=== PATIENT | female | born 1995 | race American Indian/Alaskan Native ===

== ENCOUNTER 2018-08-27 08:24 | Outpatient (CLI) | payer MEDICAID ==
[2018-08-27 08:49] VITALS: BP 118/74
[2018-08-27] MEDS ORDERED: LACTATED RINGERS 1,000 ML IV ONE (09:07)
[2018-08-27] MEDS ORDERED: ZOFRAN IV ONE (10:00)
[2018-08-27] MEDS ORDERED: LACTATED RINGERS 1,000 ML IV SCH (10:00)
== END 2018-08-27 10:50 | disposition home or self-care (01) ==
LOC: TRG 08:24
PROVIDERS: ATTEND Obstetrics & Gynecology
DX: O21.2 Late vomiting of pregnancy (principal); O47.1 False labor at or after 37 completed weeks of gestation; O26.893 Other specified pregnancy related conditions, third trimester; R10.30 Lower abdominal pain, unspecified; Z3A.37 37 weeks gestation of pregnancy
CPT/HCPCS: 59025; 96361; 96374; J2405; J7120; 96360

== ENCOUNTER 2018-08-29 16:02 | Inpatient (IN) | payer MEDICAID ==
[2018-08-29] MEDS ORDERED: LACTATED RINGERS 500 ML IV ONE (16:58)
[2018-08-29 17:23] LABS: Bilirubin,Urine NEG (Negative); Blood,Urine NEG (Negative); Color,Urine Straw (Yellow); Protein,Urine <15 mg/dL mg/dL (Negative); Urobilinogen,Urine < 2.0 mg/dL (<2.0)
[2018-08-29] MEDS ORDERED: LACTATED RINGERS 1,000 ML ONE (23:24)
[2018-08-29] MEDS ORDERED: LACTATED RINGERS 1,000 ML IV SCH (23:45)
--- NOTE | 2018-08-29 23:46 | Ultrasound Report ---
FINAL REPORT EXAM: US OB LIMITED HISTORY: FOR MERY TECHNIQUE: Ultrasound obstetrical limited PRIORS: None. FINDINGS: There is single live intrauterine gestation in cephalic presentation. cardiac activity is prese nt with heart rate of 150 beats per minute Amniotic fluid index is low measuring 5.7 centimeters with deepest pocket measurement 2.32 centimeter s. IMPRESSION: Low amniotic fluid index measuring 5.7 centimeters
--- NOTE | 2018-08-30 00:46 | Event Note ---
Date: 08/30/18 s/p Gaby SUTHERLAND, no evidence of ROM, will admit IV hydration , hang ORDONEZ in am
--- NOTE | 2018-08-30 07:45 | Progress Note ---
Assessment and Plan Patient sleeping, no complaints this morning. reports nausea/vomiting resolved. chux & towels dry under patient. Spex exam done - cervix well visualized. no pooling or fluid noted. Plan for repeat MERY this morning. If MERY improved will d/c home with labor precautions. pt has appointment in office tomorrow. - Patient Problems (1) 37 weeks gestation of Current Visit: Yes Status: Acute (2) MERY (amniotic fluid index) borderline low Current Visit: Yes Status: Acute Subjective - Subjective Date of service: 08/30/18 Principal diagnosis: IUP @ 37+6, low MERY Patient reports: movement normal, no new complaints (pt sleeping - n/s resolved. chux dry under patient. ) Objective - Vital Signs Vital Signs: Vital Signs - 12hr 08/29/18 08/29/18 08/30/18 20:25 23:20 00:18 Temperature 97.2 F L Pulse Rate 61 62 72 Respiratory 18 Rate Blood Pressure 114/56 134/89 Blood Pressure 129/75 [Left] O2 Sat by Pulse 99 Oximetry 08/30/18 08/30/18 08/30/18 00:26 00:31 00:36 Temperature Pulse Rate 55 L 71 67 Respiratory Rate Blood Pressure Blood Pressure [Left] O2 Sat by Pulse 99 98 98 Oximetry 08/30/18 08/30/18 08/30/18 00:41 00:46 00:51 Temperature Pulse Rate 55 L 60 69 Respiratory Rate Blood Pressure Blood Pressure [Left] O2 Sat by Pulse 99 99 97 Oximetry 08/30/18 08/30/18 08/30/18 00:53 00:56 01:01 Temperature Pulse Rate 66 55 L 66 Respiratory Rate Blood Pressure Blood Pressure [Left] O2 Sat by Pulse 82 L 100 100 Oximetry 08/30/18 08/30/18 08/30/18 01:06 01:11 01:16 Temperature Pulse Rate 63 61 66 Respiratory Rate Blood Pressure Blood Pressure [Left] O2 Sat by Pulse 100 100 100 Oximetry 08/30/18 08/30/18 08/30/18 01:21 01:26 01:30 Temperature Pulse Rate 69 70 74 Respiratory Rate Blood Pressure Blood Pressure [Left] O2 Sat by Pulse 100 100 87 Oximetry 08/30/18 08/30/18 08/30/18 01:31 01:37 01:42 Temperature Pulse Rate 73 58 L 60 Respiratory Rate Blood Pressure Blood Pressure [Left] O2 Sat by Pulse 100 6 L 97 Oximetry 08/30/18 08/30/18 08/30/18 01:47 01:51 01:55 Temperature Pulse Rate 62 33 L 56 L Respiratory Rate Blood Pressure Blood Pressure [Left] O2 Sat by Pulse 100 54 L 100 Oximetry 08/30/18 08/30/18 08/30/18 01:57 02:00 02:06 Temperature Pulse Rate 77 65 60 Respiratory Rate Blood Pressure Blood Pressure [Left] O2 Sat by Pulse 53 L 100 100 Oximetry 08/30/18 08/30/18 08/30/18 02:07 02:11 02:13 Temperature Pulse Rate 56 L 54 L Respiratory Rate Blood Pressure Blood Pressure [Left] O2 Sat by Pulse 0 L 100 87 Oximetry 08/30/18 08/30/18 08/30/18 02:16 02:21 02:26 Temperature Pulse Rate 48 L 57 L 51 L Respiratory Rate Blood Pressure Blood Pressure [Left] O2 Sat by Pulse 98 98 98 Oximetry 08/30/18 08/30/18 08/30/18 02:31 02:36 02:41 Temperature Pulse Rate 57 L 51 L 61 Respiratory Rate Blood Pressure Blood Pressure [Left] O2 Sat by Pulse 97 98 97 Oximetry 08/30/18 08/30/18 08/30/18 02:46 02:51 02:56 Temperature Pulse Rate 60 53 L 61 Respiratory Rate Blood Pressure Blood Pressure [Left] O2 Sat by Pulse 97 97 98 Oximetry 08/30/18 08/30/18 08/30/18 03:01 03:06 03:11 Temperature Pulse Rate 55 L 73 59 L Respiratory Rate Blood Pressure Blood Pressure [Left] O2 Sat by Pulse 99 100 100 Oximetry 08/30/18 08/30/18 08/30/18 03:16 03:21 03:26 Temperature Pulse Rate 63 59 L 59 L Respiratory Rate Blood Pressure Blood Pressure [Left] O2 Sat by Pulse 99 98 97 Oximetry 08/30/18 08/30/18 08/30/18 03:31 03:36 03:41 Temperature Pulse Rate 55 L 56 L Respiratory Rate Blood Pressure Blood Pressure [Left] O2 Sat by Pulse 97 81 L 99 Oximetry 08/30/18 08/30/18 08/30/18 03:44 03:46 03:51 Temperature Pulse Rate 59 L 54 L 53 L Respiratory Rate Blood Pressure Blood Pressure [Left] O2 Sat by Pulse 0 L 99 100 Oximetry 08/30/18 08/30/18 08/30/18 03:56 04:04 04:06 Temperature Pulse Rate 60 55 L Respiratory Rate Blood Pressure Blood Pressure [Left] O2 Sat by Pulse 100 86 99 Oximetry 08/30/18 08/30/18 08/30/18 04:11 04:16 04:21 Temperature Pulse Rate 58 L 60 53 L Respiratory Rate Blood Pressure Blood Pressure [Left] O2 Sat by Pulse 99 98 99 Oximetry 08/30/18 08/30/18 08/30/18 04:26 04:29 04:31 Temperature Pulse Rate 65 81 83 Respiratory Rate Blood Pressure Blood Pressure [Left] O2 Sat by Pulse 97 73 L 95 Oximetry 08/30/18 08/30/18 08/30/18 04:36 04:41 04:43 Temperature Pulse Rate 71 64 55 L Respiratory Rate Blood Pressure Blood Pressure [Left] O2 Sat by Pulse 94 96 48 L Oximetry 08/30/18 08/30/18 08/30/18 04:46 04:50 04:51 Temperature Pulse Rate 63 79 63 Respiratory Rate Blood Pressure Blood Pressure [Left] O2 Sat by Pulse 99 90 95 Oximetry 08/30/18 08/30/18 08/30/18 04:55 05:00 05:05 Temperature Pulse Rate 61 72 60 Respiratory Rate Blood Pressure Blood Pressure [Left] O2 Sat by Pulse 100 97 97 Oximetry 08/30/18 08/30/18 08/30/18 05:06 05:11 05:15 Temperature Pulse Rate 66 77 66 Respiratory Rate Blood Pressure Blood Pressure [Left] O2 Sat by Pulse 92 91 98 Oximetry 08/30/18 08/30/18 08/30/18 05:20 05:26 05:30 Temperature Pulse Rate 70 72 70 Respiratory Rate Blood Pressure Blood Pressure [Left] O2 Sat by Pulse 96 94 94 Oximetry 08/30/18 08/30/18 08/30/18 05:34 05:35 05:40 Temperature Pulse Rate 77 70 Respiratory Rate Blood Pressure Blood Pressure [Left] O2 Sat by Pulse 85 97 100 Oximetry 08/30/18 08/30/18 08/30/18 05:41 05:45 05:50 Temperature Pulse Rate 68 73 70 Respiratory Rate Blood Pressure 107/72 Blood Pressure [Left] O2 Sat by Pulse 95 97 Oximetry 08/30/18 08/30/18 08/30/18 05:55 06:00 06:05 Temperature Pulse Rate 78 74 64 Respiratory Rate Blood Pressure Blood Pressure [Left] O2 Sat by Pulse 98 99 100 Oximetry 08/30/18 08/30/18 08/30/18 06:10 06:15 06:20 Temperature Pulse Rate 63 68 65 Respiratory Rate Blood Pressure Blood Pressure [Left] O2 Sat by Pulse 99 97 98 Oximetry 08/30/18 08/30/18 08/30/18 06:25 06:30 06:35 Temperature Pulse Rate 67 66 66 Respiratory Rate Blood Pressure Blood Pressure [Left] O2 Sat by Pulse 98 97 97 Oximetry 08/30/18 08/30/18 08/30/18 06:40 06:45 06:50 Temperature Pulse Rate 63 69 85 Respiratory Rate Blood Pressure Blood Pressure [Left] O2 Sat by Pulse 97 97 96 Oximetry 08/30/18 08/30/18 08/30/18 06:55 07:00 07:05 Temperature Pulse Rate 65 68 62 Respiratory Rate Blood Pressure Blood Pressure [Left] O2 Sat by Pulse 97 97 98 Oximetry 08/30/18 08/30/18 08/30/18 07:10 07:15 07:20 Temperature Pulse Rate 69 66 69 Respiratory Rate Blood Pressure Blood Pressure [Left] O2 Sat by Pulse 97 96 96 Oximetry 08/30/18 08/30/18 07:25 07:30 Temperature Pulse Rate 67 72 Respiratory Rate Blood Pressure Blood Pressure [Left] O2 Sat by Pulse 95 95 Oximetry - Exam Breasts: normal Cardiovascular: Regular rate Lungs: Clear to auscultation, Normal air movement Abdomen: Present: normal appearance, soft Vulva: both: normal Uterus: Present: normal FHR: category 1 Uterine Contraction Monitor Mode: External Uterine Tone Measurement Phase: Resting Extremities: normal Deep Tendon Reflex Grade: Normal +2 - Labs Labs: Laboratory Results - last 24 hr 08/29/18 17:15 Urine Color Straw Urine Turbidity Clear Urine pH 7.0 Ur Specific Mona 1.004 Urine Protein <15 mg/dl Urine Glucose (UA) Neg Urine Ketones Neg Urine Blood Neg Urine Nitrite Neg Urine Bilirubin Neg Urine Urobilinogen < 2.0 Ur Leukocyte Esterase Neg Urine WBC (Auto) 1.0 Urine RBC (Auto) 1.0 U Epithel Cells (Auto) 1.0
--- NOTE | 2018-08-30 11:58 | Ultrasound Report ---
OB LIMITED INDICATION: Repeat MERY. COMPARISON: Yesterday. TECHNIQUE: Transabdominal grayscale ultrasound with Doppler interrogation. Gestation: Fernández Position: Cephalic Amniotic Fluid: Decreased (<7 cm) MERY = 6.1 cm Heart Rate: 133 BPM CONCLUSION: Findings, as above.
--- NOTE | 2018-08-30 15:03 | Event Note ---
Date: 08/30/18 After hydration pt MERY remains borderline. I have d/w repeating son for MERY vs IOL as she is late term. Will proceed with IOL at this time for bordeline low MERY. I have d/w pt the following risk: failed induction, infection, need for emergent c/s, need for c/s for failed IOL, need for several days for IOL. Pt and her mother expressed understanding and questions were addressed and answered. Will allow pt to have dinner at 5pm and proceed with IOL at 7pm with cervidil. Cx is 1/50/-2/soft/mid position.
--- NOTE | 2018-08-30 15:19 | History and Physical Report ---
History of Present Illness Date of examination: 08/30/18 Date of admission: 08/29/18 23:50 Chief complaint: borderline low MERY History of present illness: EDC Confirmation: 09/15/2018 Past History : 1 Term Births: 0 Premature Births: 0 Living Children: 0 Para: 0 Mult. Births: 0 Prev : 0 Aborta: 0 Elect. Ab: 0 Spont. 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 of genital herpes: no Partner hx. of genital herpes: no Varicella/Chicken Pox Status: Unknown TB Risk: no Genetic History Congenital Heart Defect: Mom: no Dad: unknown Tami Disease: Mom: no Dad: unknown Thalassemia Mom: no Dad: unknown Neural Tube Defect Mom: no Dad: unknown Down's Syndrome Mom: no Dad: unknown Feng-Sachs Mom: no Dad: unknown Sickle Cell Disease/Trait Mom: no Dad: unknown Hemophilia Mom: no Dad: unknown Muscular Dystrophy Mom: no Dad: unknown Cystic Fibrosis Mom: no Dad: unknown [place] Chorea Mom: no Dad: unknown Mental Retardation Mom: no Dad: unknown Fragile X Mom: no Dad: unknown Other Genetic/Chromosomal Disorder Mom: no Dad: unknown Child w/other defect Mom: no Dad: unknown Enviromental Exposures Xray Exposure: no Medication, drug, or alcohol use since LMP: no Chemical/Other Exposure: no Exposure to Cat Liter: no Hx of Parvovirus (Fifth Disease): no Occupational Exposure to Children: none Current Allergies (reviewed today): No known allergies Past History Past Medical History: other (see HPI) Past Surgical History: other (see 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) 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) Family/Genetic History: other (see HPI) - Obstetrical History Expected Date of Delivery: 09/15/18 Actual Gestation: 37 Week(s) 5 Day(s) : 1 Para: 0 Hx # Term Pregnancies: 0 Number of Pregnancies: 0 Spontaneous Abortions: 0 Induced : 0 Number of Living Children: 0 Medications and Allergies Allergies Allergy/AdvReac Type Severity Reaction Status Date / Time No Known Allergies Allergy Verified 08/27/18 09:03 Home Medications Medication Instructions Recorded Confirmed Last Taken Type Pnv No.95/Ferrous Fum/Folic AC 1 tab PO QDAY 06/07/18 08/30/18 08/29/18 10:00 History [ Vitamins Tablet] Ferrous Sulfate [Feosol 325 MG tab] 1 tab PO QDAY 08/27/18 08/30/18 08/29/18 History Levothyroxine [Synthroid] 125 mcg PO QAM 08/27/18 08/30/18 08/29/18 History Active Meds: Active Medications Dinoprostone (Cervidil) 10 mg VG ONCE ONE Stop: 08/30/18 19:01 Lactated Ringer's (Lactated Ringers) 1,000 mls @ 125 mls/hr IV DIRECT CHARLIE Review of Systems All systems: negative - Vital Signs Vital signs: Vital Signs Temp Pulse Resp BP 98 F 69 16 126/83 08/29/18 16:48 08/29/18 16:48 08/29/18 16:48 08/29/18 16:48 Temp Pulse Resp BP Pulse Ox 97.2 F L 65 18 122/82 100 08/30/18 00:18 08/30/18 14:43 08/30/18 00:18 08/30/18 14:43 08/30/18 10:58 - Physical Exam Breasts: Positive: normal Cardiovascular: Regular rate Lungs: Positive: Clear to auscultation, Normal air movement Abdomen: Positive: normal appearance, soft Genitourinary (Female): Positive: normal external genitalia, normal perenium Vulva: both: normal Vagina: Positive: normal moisture (no leaking or pooling noted.) Uterus: Positive: normal size Anus/Rectum: Positive: normal perianal skin Extremities: Positive: normal Deep Tendon Reflex Grade: Normal +2 - Obstetrical FHR: category 1 Uterine Contraction Monitor Mode: External Cervical Dilatation: 1 Cervical Effacement Percentage: 50 station: -2 Uterine Tone Measurement Phase: Resting Results All other labs normal. Assessment and Plan 22 y/o g1po admitted for IOL d/o borderline low MERY. GBS Neg. Admission orders in EMR. - Patient Problems (1) 37 weeks gestation of Current Visit: Yes Status: Acute (2) MERY (amniotic fluid index) borderline low Current Visit: Yes Status: Acute (3) History of thyroidectomy Current Visit: Yes Status: Acute
[2018-08-30] MEDS ORDERED: ZOFRAN IV PRN (15:59)
[2018-08-30] MEDS ORDERED: XYLOCAINE 2% INFILTRATI ONE (15:59)
[2018-08-30] MEDS ORDERED: MINERAL OIL PO PRN (15:59)
[2018-08-30] MEDS ORDERED: BRETHINE SUB-Q PRN (15:59)
[2018-08-30] MEDS ORDERED: PITOCin/NS 20 UNIT/1000ML DRIP 20 UNITS/1,000 ML BAG IV SCH (16:00)
[2018-08-30] MEDS ORDERED: CERVIDIL VG ONE (19:00)
--- NOTE | 2018-08-30 19:41 | Event Note ---
Date: 08/30/18 Provider again at bedside to discuss plan of care and address any questions pt may have regarding placement of epidural, reason for IOL, risk of IOL ect that were d/w in detail upon admission. She and support persons expressed understanding and no questions were asked at this time.
[2018-08-30 20:49] LABS: Hematocrit 31.9 % (30.3-42.9); Hemoglobin 10.6 gm/dl (10.1-14.3); Mean Corpuscular HGB Conc 33 % (30-34); Mean Corpuscular Volume 90 fl (79-97); Platelet Count 207 K/mm3 (140-440); Red Blood Count 3.55 M/mm3 (3.65-5.03); Red Cell Distribution Width 14.7 % (13.2-15.2)
[2018-08-31] MEDS ORDERED: SUBLIMAZE IV PRN (05:38)
[2018-08-31] MEDS ORDERED: SUBLIMAZE ONE (05:44)
[2018-08-31] MEDS: LACTATED RINGERS 1,000 ML IV SCH ×2 (05:49→17:45)
[2018-08-31] MEDS ORDERED: PITOCin/NS 30 UNIT/500ML 30 UNITS/500 ML BAG IV SCH (07:30)
--- NOTE | 2018-08-31 08:03 | Progress Note ---
Assessment and Plan patient resting without complaints, cervidil removed. Will allow AM care and breakfast then start pitocin 4x4. Will reevaluate as needed. Discussed plan of care with patient (family present but appears to be sleeping in room), all questions addressed. - Patient Problems (1) 37 weeks gestation of Current Visit: Yes Status: Acute (2) MERY (amniotic fluid index) borderline low Current Visit: Yes Status: Acute (3) History of thyroidectomy Current Visit: Yes Status: Acute Subjective - Subjective Date of service: 08/31/18 Principal diagnosis: IUP @ 37+6, decreased MERY Interval history: EDC Confirmation: 09/15/2018 Past History : 1 Term Births: 0 Premature Births: 0 Living Children: 0 Para: 0 Mult. Births: 0 Prev : 0 Aborta: 0 Elect. Ab: 0 Spont. 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 of genital herpes: no Partner hx. of genital herpes: no Varicella/Chicken Pox Status: Unknown TB Risk: no Genetic History Congenital Heart Defect: Mom: no Dad: unknown Tami Disease: Mom: no Dad: unknown Thalassemia Mom: no Dad: unknown Neural Tube Defect Mom: no Dad: unknown Down's Syndrome Mom: no Dad: unknown Feng-Sachs Mom: no Dad: unknown Sickle Cell Disease/Trait Mom: no Dad: unknown Hemophilia Mom: no Dad: unknown Muscular Dystrophy Mom: no Dad: unknown Cystic Fibrosis Mom: no Dad: unknown [place] Chorea Mom: no Dad: unknown Mental Retardation Mom: no Dad: unknown Fragile X Mom: no Dad: unknown Other Genetic/Chromosomal Disorder Mom: no Dad: unknown Child w/other defect Mom: no Dad: unknown Enviromental Exposures Xray Exposure: no Medication, drug, or alcohol use since LMP: no Chemical/Other Exposure: no Exposure to Cat Liter: no Hx of Parvovirus (Fifth Disease): no Occupational Exposure to Children: none Current Allergies (reviewed today): No known allergies Patient reports: movement normal, no new complaints (resting w/o compliants), no loss of fluid, no vaginal bleeding, no contractions Objective - Vital Signs Vital Signs: Vital Signs - 12hr 08/30/18 08/30/18 08/30/18 19:53 20:12 20:13 Temperature 98.6 F Pulse Rate 65 70 60 Respiratory 22 Rate Blood Pressure 124/94 148/86 Blood Pressure 129/75 [Left] O2 Sat by Pulse 100 Oximetry 08/30/18 08/30/18 08/30/18 20:44 21:44 22:54 Temperature Pulse Rate 56 L 65 77 Respiratory Rate Blood Pressure 121/84 134/92 122/84 Blood Pressure [Left] O2 Sat by Pulse Oximetry 08/30/18 08/31/18 08/31/18 23:53 00:40 00:53 Temperature 97.8 F Pulse Rate 76 64 Respiratory 20 Rate Blood Pressure 127/64 106/58 Blood Pressure [Left] O2 Sat by Pulse Oximetry 08/31/18 08/31/18 08/31/18 01:55 02:53 03:52 Temperature 96.8 F L Pulse Rate 66 85 Respiratory 22 Rate Blood Pressure 89/55 114/75 Blood Pressure [Left] O2 Sat by Pulse Oximetry 08/31/18 08/31/18 08/31/18 03:53 04:53 05:48 Temperature Pulse Rate 59 L 55 L Respiratory 20 Rate Blood Pressure 101/66 102/65 Blood Pressure [Left] O2 Sat by Pulse Oximetry 08/31/18 06:53 Temperature Pulse Rate 55 L Respiratory Rate Blood Pressure 109/69 Blood Pressure [Left] O2 Sat by Pulse Oximetry - Exam Breasts: normal Cardiovascular: Regular rate Lungs: Clear to auscultation, Normal air movement Abdomen: Present: normal appearance, soft Vulva: both: normal Uterus: Present: normal FHR: auscultation normal Uterine Contraction Monitor Mode: External Uterine Contraction Pattern: Irregular Uterine Tone Measurement Phase: Resting Extremities: normal Deep Tendon Reflex Grade: Normal +2 - Labs Labs: Abnormal Labs 08/30/18 20:16 RBC 3.55 L Laboratory Results - last 24 hr 08/30/18 08/30/18 20:16 20:16 WBC 7.5 RBC 3.55 L Hgb 10.6 Hct 31.9 MCV 90 MCH 30 MCHC 33 RDW 14.7 Plt Count 207 Blood Type O POSITIVE Antibody Screen Negative
--- NOTE | 2018-08-31 13:07 | Progress Note ---
Assessment and Plan patient resting, no complaints. Discussed AROM - patient desires AROM. (pads dry under patient, pt denies any leaking. No evidence of PPROM.) AROM - clear fluid. ISE and IUPC placed without difficulty. Encouraged patient to request epidural as needed. RN to continue titrating pitocin for adequate labor. - Patient Problems (1) 37 weeks gestation of Current Visit: Yes Status: Acute (2) MERY (amniotic fluid index) borderline low Current Visit: Yes Status: Acute (3) History of thyroidectomy Current Visit: Yes Status: Acute Subjective - Subjective Date of service: 08/31/18 Principal diagnosis: IUP @ 37+6, decreased MERY Interval history: EDC Confirmation: 09/15/2018 Past History : 1 Term Births: 0 Premature Births: 0 Living Children: 0 Para: 0 Mult. Births: 0 Prev : 0 Aborta: 0 Elect. Ab: 0 Spont. 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 of genital herpes: no Partner hx. of genital herpes: no Varicella/Chicken Pox Status: Unknown TB Risk: no Genetic History Congenital Heart Defect: Mom: no Dad: unknown Tami Disease: Mom: no Dad: unknown Thalassemia Mom: no Dad: unknown Neural Tube Defect Mom: no Dad: unknown Down's Syndrome Mom: no Dad: unknown Feng-Sachs Mom: no Dad: unknown Sickle Cell Disease/Trait Mom: no Dad: unknown Hemophilia Mom: no Dad: unknown Muscular Dystrophy Mom: no Dad: unknown Cystic Fibrosis Mom: no Dad: unknown [place] Chorea Mom: no Dad: unknown Mental Retardation Mom: no Dad: unknown Fragile X Mom: no Dad: unknown Other Genetic/Chromosomal Disorder Mom: no Dad: unknown Child w/other defect Mom: no Dad: unknown Enviromental Exposures Xray Exposure: no Medication, drug, or alcohol use since LMP: no Chemical/Other Exposure: no Exposure to Cat Liter: no Hx of Parvovirus (Fifth Disease): no Occupational Exposure to Children: none Current Allergies (reviewed today): No known allergies Patient reports: movement normal, no new complaints (resting w/o compliants), no loss of fluid, no vaginal bleeding, no contractions Objective - Vital Signs Vital Signs: Vital Signs - 12hr 08/31/18 08/31/18 08/31/18 01:55 02:53 03:52 Temperature 96.8 F L Pulse Rate 66 85 Respiratory 22 Rate Blood Pressure 89/55 114/75 08/31/18 08/31/18 08/31/18 03:53 04:53 05:48 Temperature Pulse Rate 59 L 55 L Respiratory 20 Rate Blood Pressure 101/66 102/65 08/31/18 08/31/18 08/31/18 06:53 07:00 08:28 Temperature 97.0 F L Pulse Rate 55 L 50 L Respiratory Rate Blood Pressure 109/69 107/55 - Exam Breasts: normal Cardiovascular: Regular rate Lungs: Clear to auscultation, Normal air movement Abdomen: Present: normal appearance, soft Vulva: both: normal Uterus: Present: normal FHR: auscultation normal, category 1 Uterine Contraction Monitor Mode: Internal Cervical Dilatation: 3 (SROM - clear fluid) Cervical Effacement Percentage: 80 station: -1 Uterine Contraction Frequency (min): 2-4 Uterine Contraction Duration: 60 Uterine Contraction Pattern: Irregular Uterine Tone Measurement Phase: Contraction Uterine Contraction Intensity: Mild Extremities: normal Deep Tendon Reflex Grade: Normal +2 - Labs Labs: Abnormal Labs 08/30/18 20:16 RBC 3.55 L Laboratory Results - last 24 hr 08/30/18 08/30/18 08/30/18 20:16 20:16 20:16 WBC 7.5 RBC 3.55 L Hgb 10.6 Hct 31.9 MCV 90 MCH 30 MCHC 33 RDW 14.7 Plt Count 207 RPR Nonreactive Blood Type O POSITIVE Antibody Screen Negative
--- NOTE | 2018-08-31 14:36 | Anesthesia Day of Surgery ---
Anesthesia Day of Surgery - Day of Surgery Patient Examined: Yes Patient H&P Reviewed: Yes Patient is NPO: Yes Beta Blockers: No Cardiac Clearance: No Pulmonary Clearance: No Jack's Test: N/A
--- NOTE | 2018-08-31 14:45 | Anesthesia Consultation ---
Anesthesia Consult and Med Hx - Airway Anesthetic Teeth Evaluation: Good ROM Head & Neck: Adequate Mental/Hyoid Distance: Adequate Mallampati Class: Class II Intubation Access Assessment: Probably Good - Pulmonary Exam CTA: Yes - Cardiac Exam Cardiac Exam: RRR - Pre-Operative Health Status ASA Pre-Surgery Classification: ASA2 Proposed Anesthetic Plan: Epidural - Pulmonary Hx Smoking: No Hx Asthma: No Hx Respiratory Symptoms: No SOB: No COPD: No Home Oxygen Therapy: No Hx Pneumonia: No Hx Sleep Apnea: No - Cardiovascular System Hx Hypertension: No Hx Coronary Artery Disease: No Hx Heart Attack/AMI: No Hx Angina: No Hx Percutaneous Transluminal Coronary Angioplasty (PTCA): No Hx Cardia Arrhythmia: No Hx Pacemaker: No Hx Internal Defibrillator: No Hx Valvular Heart Disease: No Hx Heart Murmur: No Hx Peripheral Vascular Disease: No - Central Nervous System Hx Neuromuscular Disorder: No Hx Seizures: No CVA: No Hx Back Pain: No Hx Psychiatric Problems: No - Gastrointestinal Hx Ulcer: No Hx Gastroesophageal Reflux Disease: No - Endocrine Hx Renal Disease: No Hx End Stage Renal Disease: No Hx Cirrhosis: No Hx Liver Disease: No Hx Insulin Dependent Diabetes: No Hx Non-Insulin Dependent Diabetes: No Hx Thyroid Disease: No Hx Hypothyroidism: No Hx Hyperthyroidism: No - Hematic Hx Anemia: Yes Hx Sickle Cell Disease: No - Other Systems Hx Alcohol Use: Yes (pre ) Hx Substance Use: No Hx Cancer: No Hx Obesity: No
[2018-08-31] MEDS ORDERED: NARCAN 2 MG/2 ML IV PRN (15:00)
[2018-08-31] MEDS ORDERED: fentaNYL-BUPIV 2 MCG/ML-0.125% 200 MCG/100 ML BAG EPIDURAL SCH (15:00)
[2018-08-31] MEDS: SYNTHROID PO SCH (17:15)
--- NOTE | 2018-08-31 21:27 | Post Anesthesia Evaluation ---
- Post Anesthesia Evaluation Patient Participated: Yes Airway Patent: Yes Stable Respiratory Function: Yes Nausea/Vomiting: No Temp > 96.8F: Yes Pain Manageable: Yes Adequeate Hydration: Yes Anesthesia Complications: No Block Receding Appropriately: Yes Patient on Ventilator: No
--- NOTE | 2018-08-31 21:33 | Procedure Note ---
OB Delivery Note - Delivery Date of Delivery: 08/31/18 Estimated blood loss: 200cc - Vaginal Delivery presentation: vertex Delivery position: OA Intrapartum events: mult. late decelerations, other(please specify) (Patient with multiple variables according to RN, patient delivered while I was in an emergemcy delivery. ) Delivery induction: cervidil Delivery augmentation: rupture of membranes, pitocin Delivery monitor: external FHT, external uterine, internal FHT, internal uterine Route of delivery: Delivery placenta: spontaneous (intact) Episiotomy: none Delivery laceration: none Anesthesia: epidural - A at 1 minute: 8 at 5 minutes: 9 Infant Gender: Male (6#5oz)
[2018-08-31] MEDS ORDERED: DULCOLAX PR PRN (22:21)
[2018-08-31] MEDS ORDERED: TYLENOL PO PRN (22:21)
[2018-08-31] MEDS ORDERED: LANSINOH TP PRN (22:21)
[2018-08-31] MEDS ORDERED: TUCKS PAD TP PRN (22:21)
[2018-08-31] MEDS ORDERED: PHENERGAN PR PRN (22:21)
[2018-08-31] MEDS ORDERED: SODIUM CHLORIDE FLUSH SYRINGE 10 ML IV NR (22:21)
[2018-08-31] MEDS ORDERED: BENADRYL PO PRN (22:21)
[2018-08-31] MEDS ORDERED: MILK OF MAGNESIA PO PRN (22:21)
[2018-08-31] MEDS ORDERED: PHENERGAN PO PRN (22:21)
[2018-08-31] MEDS ORDERED: ZOFRAN IV PRN (22:21)
[2018-08-31] MEDS: IBUPROFEN PO SCH (23:02)
[2018-09-01] MEDS ORDERED: BOOSTRIX IM ONE (06:00)
[2018-09-01] MEDS: SYNTHROID PO SCH (06:21)
[2018-09-01] MEDS: IBUPROFEN PO SCH ×4 (06:21→23:56)
--- NOTE | 2018-09-01 09:02 | Progress Note ---
Assessment and Plan patient doing well, no complaints. Lochia scant, VSSAF, H&H ordered for 0810 this morning. no s/s anemia. breast feeding . Continue pathway, anticipate d/c home tomorrow if stable. - Patient Problems (1) History of thyroidectomy Current Visit: Yes Status: Acute (2) (normal spontaneous vaginal delivery) Current Visit: Yes Status: Acute Subjective - Subjective Date of service: 09/01/18 Principal diagnosis: day 1 s/p Interval history: EDC Confirmation: 09/15/2018 Past History : 1 Term Births: 0 Premature Births: 0 Living Children: 0 Para: 0 Mult. Births: 0 Prev : 0 Aborta: 0 Elect. Ab: 0 Spont. 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 of genital herpes: no Partner hx. of genital herpes: no Varicella/Chicken Pox Status: Unknown TB Risk: no Genetic History Congenital Heart Defect: Mom: no Dad: unknown Tami Disease: Mom: no Dad: unknown Thalassemia Mom: no Dad: unknown Neural Tube Defect Mom: no Dad: unknown Down's Syndrome Mom: no Dad: unknown Feng-Sachs Mom: no Dad: unknown Sickle Cell Disease/Trait Mom: no Dad: unknown Hemophilia Mom: no Dad: unknown Muscular Dystrophy Mom: no Dad: unknown Cystic Fibrosis Mom: no Dad: unknown [place] Chorea Mom: no Dad: unknown Mental Retardation Mom: no Dad: unknown Fragile X Mom: no Dad: unknown Other Genetic/Chromosomal Disorder Mom: no Dad: unknown Child w/other defect Mom: no Dad: unknown Enviromental Exposures Xray Exposure: no Medication, drug, or alcohol use since LMP: no Chemical/Other Exposure: no Exposure to Cat Liter: no Hx of Parvovirus (Fifth Disease): no Occupational Exposure to Children: none Current Allergies (reviewed today): No known allergies Patient reports: appetite normal, voiding normally, pain well controlled, ambulating normally, no dizzy ambulation, no nauseated [place]: doing well, bottle feeding (breast and bottle feeding) Objective - Vital Signs Latest vital signs: Vital Signs Temp Pulse Resp BP BP Pulse Ox 09/01/18 04:30 98.2 F 54 L 18 110/78 08/31/18 23:02 18 08/31/18 22:45 98.2 F 68 18 138/54 08/31/18 20:52 72 113/93 08/31/18 20:39 73 121/55 08/31/18 19:52 146 H 103/49 08/31/18 19:41 75 111/56 08/31/18 19:40 75 18 111/56 08/31/18 19:20 77 100 08/31/18 19:15 64 100 08/31/18 19:10 67 100 08/31/18 19:07 65 111/53 08/31/18 19:05 63 100 08/31/18 19:00 75 100 08/31/18 18:55 74 100 08/31/18 18:54 78 155/65 08/31/18 18:50 77 100 08/31/18 18:45 74 100 08/31/18 18:40 71 98 08/31/18 18:37 79 139/69 08/31/18 18:35 69 98 08/31/18 18:30 77 98 08/31/18 18:25 74 100 08/31/18 18:24 77 90 08/31/18 18:21 57 L 121/72 08/31/18 18:20 57 L 100 08/31/18 18:15 58 L 100 08/31/18 18:10 69 100 08/31/18 18:07 63 119/63 08/31/18 18:05 67 98 08/31/18 18:00 72 98 08/31/18 17:55 77 98 08/31/18 17:36 60 112/76 08/31/18 17:28 73 100 08/31/18 17:23 67 100 08/31/18 17:21 73 111/72 08/31/18 17:19 77 87 08/31/18 17:18 80 96 08/31/18 17:13 97.8 F 79 98 08/31/18 17:08 86 107/80 98 08/31/18 16:53 56 L 114/74 08/31/18 16:37 56 L 113/59 08/31/18 16:22 63 112/69 08/31/18 16:07 48 L 111/66 08/31/18 15:51 55 L 106/57 08/31/18 15:49 61 101/56 08/31/18 15:47 59 L 101/58 08/31/18 15:45 58 L 93/55 08/31/18 15:43 59 L 93/51 08/31/18 15:42 60 93/51 08/31/18 15:39 62 103/58 08/31/18 15:38 62 98/53 08/31/18 15:33 63 122/57 08/31/18 15:31 66 105/56 08/31/18 15:29 67 120/59 08/31/18 15:27 66 114/56 08/31/18 15:25 69 113/57 08/31/18 15:23 62 121/65 08/31/18 15:21 65 109/56 08/31/18 15:20 77 102/54 08/31/18 15:17 79 122/58 100 08/31/18 15:15 82 125/56 08/31/18 15:13 83 128/66 08/31/18 15:12 102 H 95 08/31/18 15:07 69 100 08/31/18 15:04 74 116/80 08/31/18 15:02 77 95 08/31/18 14:57 65 100 08/31/18 14:52 73 99 Intake and Output 08/31/18 09/01/18 09/01/18 23:59 07:59 15:59 Intake Total 24.467 240 Output Total 700 Balance 24.467 -460 Intake: IV 24.467 PITOCin/NS 30 UNIT/500ML 24.467 30 units In 500 ml @ 4 mls/hr IV TITR CHARLIE Rx#: [id number] Oral 240 Output: Urine 700 Void 700 Other: Total, Intake Amount 240 Total, Output Amount 400 # Voids Void 2 Estimated Blood Loss 100 - Exam Breasts: Present: normal, Cardiovascular: Present: Regular rate Lungs: Present: Clear to auscultation, Normal air movement Abdomen: Present: normal appearance, soft Vulva: both: normal Uterus: Present: normal, firm, fundal height at umbilicus Extremities: Present: normal Deep Tendon Reflex Grade: Normal +2
[2018-09-01 10:46] LABS: Hematocrit 33.4 % (30.3-42.9); Hemoglobin 11.1 gm/dl (10.1-14.3)
[2018-09-01] MEDS ORDERED: AFLURIA QUAD 2018-2019 SYRINGE IM ONE (12:00)
[2018-09-02] MEDS: IBUPROFEN PO SCH (06:47)
[2018-09-02] MEDS: SYNTHROID PO SCH (06:47)
[2018-09-02 09:01] VITALS: BP 125/87
--- NOTE | 2018-09-02 10:31 | Discharge Summary ---
Providers - Providers Date of Admission: 08/30/18 15:59 Date of discharge: 09/02/18 (desires d/c home) Attending physician: PANDA CONDON Primary care physician: PANDA CONDON Hospitalization Reason for admission: Low MERY, IOL Condition: Good Pertinent studies: post delivery H&H 11.33.4 Procedures: Hospital course: uncomplicated and course Disposition: DC- TO HOME OR SELFCARE - Discharge Diagnoses (1) History of thyroidectomy Status: Acute (2) (normal spontaneous vaginal delivery) Status: Acute Core Measure Documentation - Palliative Care Palliative Care/ Comfort Measures: Not Applicable - Core Measures Any of the following diagnoses?: none Exam - Constitutional Vitals: Temp Pulse Resp BP Pulse Ox 98.7 F 55 L 20 125/87 96 09/02/18 08:33 09/02/18 08:33 09/02/18 08:33 09/02/18 08:33 09/02/18 08:33 General appearance: Present: no acute distress, well-nourished - EENT Eyes: Present: PERRL ENT: hearing intact, clear oral mucosa - Neck Neck: Present: supple, normal ROM - Respiratory Respiratory effort: normal Respiratory: bilateral: CTA - Cardiovascular Heart Sounds: Present: S1 & S2. Absent: rub, click - Extremities Extremities: pulses symmetrical, No edema Peripheral Pulses: within normal limits - Abdominal General gastrointestinal: Present: soft, non-tender, non-distended, normal bowel sounds Female genitourinary: Present: normal - Integumentary Integumentary: Present: clear, warm, dry - Musculoskeletal Musculoskeletal: gait normal, strength equal bilaterally - Psychiatric Psychiatric: appropriate mood/affect, intact judgment & insight - Neurologic Neurologic: CNII-XII intact, moves all extremities - Additional findings Additional findings: fundus firm, lochia scant, breast and bottle feeding Plan Activity: no restrictions Diet: regular Follow up with: PANDA CONDON MD [Primary Care Provider] - 7 Days (Congratulations! Please call [phone] to schedule your son's circumcision in 1 week and your visit in 4 weeks. bring EMLA cream to your son's appointment and await further teaching. Call for any questions or concerns. ) Prescriptions: Lidocain2.5%/Prilocai2.5% [Emla] 5 gm TP ONCE #1 tube
== END 2018-09-02 15:46 | disposition home or self-care (01) | DRG 775 ==
LOC: TRG 16:02 → LD 23:50 → OBSVTOIN 08-30 15:59 → OB 08-31 22:20
PROVIDERS: ADMIT Obstetrics & Gynecology; ATTEND Obstetrics & Gynecology
PROC: 10E0XZZ Delivery of Products of Conception, External Approach (ICD-10-PCS; principal; 2018-08-31)
PROC: 3E0234Z Introduction of Serum, Toxoid and Vaccine into Muscle, Percutaneous Approach (ICD-10-PCS; 2018-08-31)
PROC: 3E033VJ Introduction of Other Hormone into Peripheral Vein, Percutaneous Approach (ICD-10-PCS; 2018-08-31)
PROC: 3E0R3BZ Introduction of Anesthetic Agent into Spinal Canal, Percutaneous Approach (ICD-10-PCS; 2018-08-31)
PROC: 00HU33Z Insertion of Infusion Device into Spinal Canal, Percutaneous Approach (ICD-10-PCS; 2018-08-31)
DX: O76 Abnormality in fetal heart rate and rhythm complicating labor and delivery (principal); O41.03X0 Oligohydramnios, third trimester, not applicable or unspecified; Z3A.37 37 weeks gestation of pregnancy; Z37.0 Single live birth; Z23 Encounter for immunization
CPT/HCPCS: 36415; 59200; 76815; 81001; 85014; 85018; 85027; 86592; 86850; 86900; 86901; 90686; G0378; J2590; J3010; J7120